=== PATIENT | male | born 1990 | race Caucasian/White ===

== ENCOUNTER 2022-06-01 12:46 | Outpatient (CLI) | payer BC, SELFPAY ==
[2022-06-01 14:31] LABS: Cholesterol* 172 mg/dL (90-199)
[2022-06-01 14:32] LABS: HDL Cholesterol* 49 mg/dL (>=40); LDL Cholesterol Calculated 108 mg/dL (<100); Triglycerides* 76 mg/dL (40-149)
[2022-06-02 11:21] LABS: Glucose* 85 mg/dL (60-115)
== END 2022-06-01 12:47 | disposition home or self-care (01) ==
PROVIDERS: PCP Family Medicine; Visit Provider Family Medicine
DX: Z00.00 Encounter for general adult medical examination without abnormal findings (principal); Z13.1 Encounter for screening for diabetes mellitus; Z13.6 Encounter for screening for cardiovascular disorders
CPT/HCPCS: 80061; 82947

== ENCOUNTER 2025-04-05 10:35 | Outpatient (CLI) | payer OTHER, SELFPAY | END 2025-04-05 10:36 | disposition home or self-care (01) | LOC: NFLDREF 04-09 00:52 | PROVIDERS: PCP Nurse Practitioner Family; Visit Provider Nurse Practitioner Family | DX: Z13.1 Encounter for screening for diabetes mellitus (principal); Z13.6 Encounter for screening for cardiovascular disorders | CPT/HCPCS: 80061; 82947 ==